=== PATIENT | female | born 1980 | race Caucasian/White ===

== ENCOUNTER 2024-01-31 16:10 | Emergency (ER) | payer OTHER ==
[2024-01-31 16:32] VITALS: BP 103/63; PULSE 102; RESP 18; TEMP 98.7; BMI 24.0
[2024-01-31] MEDS ORDERED: ACETAMINOPHEN INJECTION 100 ML IVPB ONE (17:18)
[2024-01-31] MEDS: ACETAMINOPHEN 1000 MG/100 ML BAG IVPB ONE (17:31)
[2024-01-31 17:40] LABS: BASO % 0.5 % (0-2.0); EOS % 0.1 % (0-4.5); HEMATOCRIT 41.3 % (32.4-45.2); HEMOGLOBIN 13.9 GM/dL (10.7-15.3); LYMPH % 9.4 % (8-40); MCH 31.7 pg (25.7-33.7); MCHC 33.6 g/dl (32.0-36.0); MEAN CELL VOLUME 94.2 fl (80-96); MEAN PLT VOLUME 7.6 fl (7.5-11.1); MONO % 5.7 % (3.8-10.2); NEUT % 84.3 % (42.8-82.8); PLATELET COUNT 288 10^3/uL (134-434); RBC 4.39 M/mm3 (3.60-5.2); RDW 13.5 % (11.6-15.6); WHITE BLOOD COUNT 22.3 K/mm3 (4.0-10.0)
[2024-01-31 17:43] LABS: HCG,QUALITATIVE URINE Negative
[2024-01-31 17:44] LABS: EPI CELLS 12 /uL (0-25.1); HYALINE CASTS 0 /uL (0-3.1); PH,URINE 6.5 (5.0-8.0); URINE APPEARANCE CLEAR; URINE BACTERIA 247 /uL (0-1359); URINE BILIRUBIN NEGATIVE (NEGATIVE); URINE COLOR YELLOW; URINE GLUCOSE (UA) NEGATIVE (NEGATIVE); URINE KETONE 1+ (NEGATIVE); URINE LEUK ESTERASE 1+ (NEGATIVE); URINE NITRITE NEGATIVE (NEGATIVE); URINE PROTEIN NEGATIVE (NEGATIVE); URINE RBC 20 /uL (0-23.9); URINE WBC 20 /uL (0-25.8)
[2024-01-31 17:48] LABS: INR 1.13 (0.83-1.09); PROTHROMBIN TIME (PATIENT) 12.7 SEC (9.7-13.0)
[2024-01-31 17:51] LABS: ACTIVATED PTT 33.8 SECONDS (25.2-36.5)
[2024-01-31 18:02] LABS: POTASSIUM 3.2 mmol/L (3.5-5.1)
[2024-01-31 18:05] LABS: ALBUMIN 3.2 g/dl (3.4-5.0); BLOOD UREA NITROGEN 6.8 mg/dL (7-18)
[2024-01-31 18:07] LABS: CREATININE 0.7 mg/dL (0.55-1.3)
[2024-01-31 18:09] LABS: TOT PROT 6.1 g/dl (6.4-8.2)
[2024-01-31] MEDS ORDERED: POTASSIUM CHLORIDE TABS 20 MEQ TABLET.ER (FP) PO ONE (18:32)
[2024-01-31] MEDS: POTASSIUM CHLORIDE TABS 20 MEQ TABLET.ER (FP) PO ONE (18:36)
[2024-01-31 18:44] LABS: PLATELET ESTIMATE ADEQUATE
[2024-01-31] MEDS: SODIUM CHLORIDE 1,000 ML IV STA (20:26)
[2024-01-31] MEDS ORDERED: CEFTRIAXONE 1 GM/50 ML BAG ONE (21:39)
[2024-01-31] MEDS: CEFTRIAXONE 1,000 MG in DEXTROSE 5%-WATER - 50 ML IVPB ONE (21:57)
== END 2024-01-31 22:55 | disposition home or self-care (01) ==
LOC: JER 16:10
PROC: 3E03329 Introduction of Other Anti-infective into Peripheral Vein, Percutaneous Approach (ICD-10-PCS; principal; 2024-01-31)
PROC: 3E033NZ Introduction of Analgesics, Hypnotics, Sedatives into Peripheral Vein, Percutaneous Approach (ICD-10-PCS; 2024-01-31)
PROC: 3E0337Z Introduction of Electrolytic and Water Balance Substance into Peripheral Vein, Percutaneous Approach (ICD-10-PCS; 2024-01-31)
DX: R10.30 Lower abdominal pain, unspecified (principal); R10.2 Pelvic and perineal pain; N73.9 Female pelvic inflammatory disease, unspecified
CPT/HCPCS: 36415; 74177-TC; 76830-TC; 80053; 81003; 83690; 84703; 85025; 85610; 85730; 86850; 86900; 86901; 87086; 87491; 87591; 99285-25; J0131; Q9967